=== PATIENT | female | born 1960 | race African-American/Black ===

== ENCOUNTER 2024-04-15 16:06 | Emergency (ER) | payer OTHER ==
[~2024-04-15] VITALS: Ht 162.6 cm; Wt 64.0 kg
[2024-04-15 16:23] VITALS: O2SAT 95
[2024-04-15] MEDS: CALCIUM GLUCONATE 1GM PREMIX 50 ML IV ONE (16:54)
[2024-04-15] MEDS: ASPIRIN 325MG EC TABLET PO ONE (16:55)
[2024-04-15 16:58] LABS: BASOPHILS % 1.8 % (0.0-2.0); DIFFERENTIAL COMMENT 0; EOSINOPHILS % 2.3 % (0.0-5.0); HEMATOCRIT. 43.1 % (36.0-48.0); HEMOGLOBIN. 14.3 g/dL (12.0-16.0); LYMPHOCYTES % 25.1 % (20.0-50.0); MEAN CORPUSCULAR HEMOGLOBIN 30.1 pg (28.0-32.0); MEAN CORPUSCULAR HGB CONC 33.3 g/dL (31.0-37.0); MEAN CORPUSCULAR VOLUME 90.4 fL (81.0-99.0); NEUTROPHILS % 60.8 % (40.0-76.0); PLATELET 169 x1000/uL (130-400); RED BLOOD CELL COUNT 4.77 mill/uL (4.2-5.4); RED CELL DISTRIBUTION WIDTH 18.1 % (11.6-14.6); WHITE BLOOD COUNT 5.8 x1000/uL (4.5-11.0)
[2024-04-15 17:04] LABS: CHLORIDE 105 mEq/L (98-107); POTASSIUM 4.2 mEq/L (3.5-5.1); SODIUM 137 mEq/L (136-145)
[2024-04-15 17:05] LABS: CARBON DIOXIDE 25 mEq/L (21-32)
[2024-04-15 17:07] LABS: INR 1.2
[2024-04-15 17:10] LABS: CREATININE 0.9 mg/dL (0.6-1.0); GLUCOSE 85 mg/dL (70-105)
[2024-04-15 17:11] LABS: UREA NITROGEN BLOOD 17 mg/dL (9-23)
[2024-04-15 17:12] LABS: ALANINE AMINOTRANSFERASE 24 IU/L (10-49); ALBUMIN 3.9 g/dL (3.2-4.8); ASPARTATE AMINOTRANSFERASE 41 IU/L (<34)
[2024-04-15 17:13] LABS: BILIRUBIN TOTAL 1.7 mg/dL (0.1-1.0); PROTEIN TOTAL 7.7 g/dL (6.0-8.3)
[2024-04-15 17:15] LABS: TROPONIN I HIGH SENSITIVITY 158 ng/L (3.0-34)
[2024-04-15] MEDS: MORPHINE SULFATE 2 MG/ML CPJ (NOT FOR IM USE) IV ONE (17:30)
[2024-04-15] MEDS: ONDANSETRON HCL 4MG/2ML INJ IV ONE (17:30)
[2024-04-15 21:02] LABS: TROPONIN I HIGH SENSITIVITY 154 ng/L (3.0-34)
[2024-04-15 21:32] VITALS: BP 122/70; PULSE 88; RESP 22; TEMP 98.6
== END 2024-04-15 22:20 | disposition short-term general hospital (02) ==
LOC: ER 16:06
DX: I21.4 Non-ST elevation (NSTEMI) myocardial infarction (principal); I10 Essential (primary) hypertension; E11.9 Type 2 diabetes mellitus without complications; Z86.73 Personal history of transient ischemic attack (TIA), and cerebral infarction without residual deficits; Z88.8 Allergy status to other drugs, medicaments and biological substances
CPT/HCPCS: 80053; 83690; 85025; 85610; 84484; 36415; 71045; 93005; 96374; 96375; 99285; J0610; J2405; J2270